=== PATIENT | male | born 1955 ===

== ENCOUNTER → 2019-05-03 | Day surgery (SDC) | payer BC, OTHER ==
[~2019-05-03] MED LIST: Acetaminophen TAB* 325 MG ONE; Acetaminophen TAB* 325 MG PO ONE; Buffered Lidocaine 1% SYRIN* 1 ML/SYRINGE INTRADERM ONE; Dexamethasone IV* 4 MG/ML 1 ML (4 MG) ONE; DiMENhydriNATE IV* 50 MG/ML VIAL IV PUSH PRN; EPHEDrine (Pressors)* 50 MG/ML VIAL ONE; Gelfoam 12-7 ADSORBABL SPONGE* 1 EA SPONGE ONE; Ketorolac INJ* 30 MG/ML 1 ML VIAL ONE; Lactated Ringers 1000 ML Bag* 1,000 ML IV SCH; Lidocaine 2% PF * 5 ML VIAL ONE; Lidocaine 2% w/ EPI 1:200,000* 20 ML SDV VIAL ONE; Lidocaine 4% TOPICAL* 50 ML TOP.SOLN ONE; Metoclopramide IV* 5 MG/ML 2 ML VIAL ONE; Midazolam* 1 MG/ML 5 ML VIAL (5 MG) ONE; Naloxone* 0.4 MG/ML 1 ML VIAL IV PRN; Ondansetron INJ* 2 MG/ML VIAL ONE; Oxymetazoline 0.05% NASAL SPR* 15 ML BTL ONE; Propofol* 10 MG/ML 20 ML BTL ONE; Succinylcholine* 20 MG/ML 10 ML VIAL ONE; Triamcinolone Acetonide* 40 MG/ML 1 ML VIAL ONE; fentaNYL* 50 MCG/ML 2 ML VIAL (100 MCG VIAL) ONE; oxyCODONE TAB* 5 MG TAB PO PRN
[2019-05-03] MEDS: fentaNYL* 50 MCG/ML 2 ML VIAL (100 MCG VIAL) IV PRN ×2 (10:45→11:04)
[2019-05-03 12:08] VITALS: BP 166/98
--- NOTE | 2019-05-03 21:33 | OP ---
DATE OF OPERATION: 05/03/19 - [facility] DATE OF : 57 SURGEON: Erasmo Groves MD PRE-OP DIAGNOSES: Pansinusitis, nasal polyposis. POST-OP DIAGNOSES: Pansinusitis, nasal polyposis. OPERATIVE PROCEDURES: 1. Bilateral endoscopic maxillary antrostomy, removal of tissues. 2. Bilateral anterior and posterior ethmoidectomy. 3. Bilateral frontal duct exploration and frontal duct dilatation. 4. Bilateral sphenoid sinusotomy. BRIEF HISTORY: This 64-year-old gentleman with longstanding history of nasal polyps. Extensive examination showing extensive polyposis with chronic sinus inflammation on the CT scan. DESCRIPTION OF PROCEDURE: The patient was taken to the operating room, general anesthesia was given, the patient was intubated. Nose was decongested with Afrin placed pledgets. Subsequently, 2% lidocaine with epinephrine was infiltrated in the mucosa of the polyps, uncinate region and the middle turbinate on both sides. We used the image guidance system, this was used and identified as being correct for placement of the fiducial markings. We initially turned our attention to resecting out the polyps on the left side and then identifying the uncinate process and shaving that out, enlarging the antrum and then removing polypoidal mucosa within the antrum. Ethmoidectomy was then carried out, resecting out ethmoidal bulla, coursing through the lamella towards the skull base and superior to the nasofrontal duct area. The nasofrontal duct was then identified and a careful opening of the frontal sinus was carried out. Small suction was placed into the frontal sinus, confirmed with the image guidance system. Rest of the soft tissue mucosa was removed of the frontal sinuses. Then we turned medial to the middle turbinates and identified the front face by confirmation again using the image guidance and enlarged the sphenoid sinus. Suctioning of this sphenoid sinus was carried out. We then packed the area on the left side with Gelfilm, Gelfoam and Surgifoam. We then turned our attention to the right side. Again, uncinate process was identified after removing the extensive polyps that were present. It was very evident that the middle turbinate was fairly flaccid. With this, most of the uncinate process was shaved out. The antrum was enlarged. Again, hyperplastic mucosa was micro shaved away in the maxillary antrum and the lateral wall was taken towards the posterior wall enlarging the antrum. The ethmoidal dissection was carried out, it was quite narrow and it was a challenge and carefully as best I could towards the skull base and opened up the nasofrontal duct. Again, the nasofrontal duct into the frontal sinus was identified using a suction probe that was introduced into the frontal sinus and enlarging the frontal duct opening. The sphenoid sinus face was then removed and opened up allowing some adequate drainage. The area was again packed with Gelfilm and Gelfoam. I placed a Ryan pack at this time because of lot of oozing for hemostasis. The patient was then awakened, sent to recovery room in stable condition. Instrument and sponge count correct. Blood loss minimal. [id number] #: [id number]
== END | disposition home or self-care (01) ==
LOC: OR 07:20
PROVIDERS: ATTEND Otolaryngology
DX: J32.4 Chronic pansinusitis (principal); J33.9 Nasal polyp, unspecified; I10 Essential (primary) hypertension; E78.5 Hyperlipidemia, unspecified; F41.8 Other specified anxiety disorders; Z87.891 Personal history of nicotine dependence; R43.0 Anosmia; H90.12 Conductive hearing loss, unilateral, left ear, with unrestricted hearing on the contralateral side
CPT/HCPCS: 88305; A9270-GY; J0330; J1100; J1885; J2250; J2405; J2704; J2765; J3010; J3301